=== PATIENT | female | born 1945 | race Caucasian/White ===

== ENCOUNTER 2017-07-20 12:18 | Emergency (ER) | payer MEDICARE ==
[~2017-07-20] VITALS: Ht 157.5 cm; Wt 103.4 kg
[~2017-07-20 12:18] MED LIST: ACET-2031 PO; AMIT-106 PO; ASPI-1471 PO; ASPI81TA94 PO; CHOL10005 PO; CIPR-344 PO; CRAN500T PO; CYAN10006 SUBQ; DOCU100C49 PO; DOCU50CA PO; FERR159T PO; FERR325C2 PO; GLIP-154 PO; HYDR-389 PO; HYDR-4309 PO; IBUP-56 PO; LISI-374 PO; NIFS30 PO; PANT20TA27 PO; PHEN200T32 PO; POTA99TA6 PO; PRAM0.5T27 PO; PRAM1TAB PO; SERT-181 PO; SITA1TAB17 PO
--- NOTE | 2017-07-20 12:30 | ER Report ---
History and Physical Time Seen By MD: 12:27 HPI/ROS CHIEF COMPLAINT: Blood sugar problem HISTORY OF PRESENT ILLNESS: This is a 71-year-old female who presents to the emergency department from the problems area for a blood sugar problem. Patient states that over the last couple of weeks she's had some blood sugar "issues", patient states that she knows her blood sugars have been high however she's not been checking them regularly. Patient states last Wednesday she checked her blood sugar and it was around 450, went to see her primary care provider in [place], was started on Actos and sent home. Patient states then on Wednesday her blood sugars were high again she ended up going to the [facility] where they gave her some insulin, EKG and her blood sugars were down around 200 patient states they sent her home. Patient states then today she checked her blood sugar again and it was around 410, she became concerned and did not want to follow-up in the [facility] therefore she elected to come to the ER for further evaluation. Patient states she's had increased urine output, increased thirst, feels very tired and has been achy and has had intermittent diarrhea over the last couple weeks as well. Patient denies headaches, chest pain, shortness of breath, visual changes. REVIEW OF SYSTEMS: Constitutional: As above. Eyes: No discharge. ENT: No sore throat. Cardiovascular: No chest pain, no palpitations. Respiratory: No cough, no shortness of breath. Gastrointestinal: As above. Genitourinary: As above. Musculoskeletal: No back pain. Skin: No rashes. Neurological: No headache. Allergies: Coded Allergies: oxycodone (Verified Allergy, Intermediate, HALLUCINATIONS, 02/15/15) adhesive (Verified Adverse Reaction, Unknown, BRUISING, 07/02/15) Home Meds Active Scripts Cyanocobalamin (Vitamin B-12) (VITAMIN B-12) 1,000 Mcg/1 Ml Drops, 1000 MCG SUBQ monthly, #2 MCG 6 Refills Prov:OREN SALDIVAR MECHANICAL SERVICE SPECIALIST-BC, ONC 07/19/17 Reported Medications Losartan/Hydrochlorothiazide (LOSARTAN-HCTZ 100-12.5 MG TAB) 1 Each Tablet, 1 EACH PO QDAY 07/20/17 Pioglitazone Hcl (PIOGLITAZONE HCL) 15 Mg Tablet, 15 MG PO QDAY 07/20/17 Cholecalciferol (Vitamin D3) (VITAMIN D3) 1,000 Unit Tablet, 93625 UNIT PO, TAB SHE IS TAKING ONE A WEEK, THEN CHANGE TO 2,000 09/18/16 Hydrocodone Bit/Acetaminophen (NORCO 5-325 TABLET) 1 Each Tablet, 1-2 TAB PO Q4- 6H Y for PAIN, #30 07/09/15 Ibuprofen (IBUPROFEN) 200 Mg Tablet, 500-800 MG PO Q6H Y for PAIN 05/24/15 Aspirin (ASPIR 81) 81 Mg Tablet.dr, 81 MG PO QDAY, TAB 09/21/14 Pramipexole Di-Hcl (MIRAPEX) 0.5 Mg Tablet, 0.5 MG PO BID 08/01/14 Sitagliptin Phos/Metformin Hcl (JANUMET 50-1,000 MG TABLET) 1 Each Tablet, 1 EACH PO BID 08/01/14 Pantoprazole Sodium (PANTOPRAZOLE SODIUM) 20 Mg Tablet.dr, 20 MG PO BID, TAB.SR 08/01/14 Discontinued Reported Medications Potassium Gluconate (POTASSIUM) 99 Mg Tablet, 99 MG PO QWEEK 09/18/16 Cranberry Fruit (Cranberry) 500 Mg Tab.chew, 500 TAB PO BID 05/22/16 Sertraline Hcl (SERTRALINE HCL) 100 Mg Tablet, 1 TAB PO QDAY TAKE ONE TABLET BY MOUTH EVERY DAY 08/01/14 Past Medical/Surgical History She has a past medical and surgical history of migraines, sinus headaches, murmur, one episode of chest pain, hypertension, 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 Reviewed Nurses Notes: Yes Hx Smoking: No Smoking Status: Former Smoker, Light Tobacco Smoker Hx Alcohol Use: No Constitutional Vital Sign - Last 24 Hours 07/20/17 07/20/17 07/20/17 07/20/17 12:18 12:25 12:31 12:33 Temp 98.7 Pulse ??? 67 65 Resp 20 25 B/P (MAP) 163/78 183/73 (109) Pulse Ox 96 97 O2 Delivery Room Air 07/20/17 07/20/17 07/20/1718 12:35 12:48 13:03 13:18 Pulse 62 62 61 Resp 8 11 8 B/P (MAP) 163/78 (106) Pulse Ox 95 96 92 07/20/17 07/20/17 07/20/17 07/20/17 13:30 13:33 13:48 14:00 Pulse 63 60 Resp 28 24 B/P (MAP) 145/71 (95) 166/88 (114) Pulse Ox 94 97 07/20/17 07/20/17 07/20/17 07/20/17 14:03 14:08 14:30 14:38 Pulse 58 63 71 Resp 10 21 14 B/P (MAP) 171/81 (111) Pulse Ox 93 95 95 07/20/17 07/20/17 07/20/17 07/20/17 14:53 15:00 15:23 15:30 Pulse ??? 67 Resp 10 8 B/P (MAP) 153/86 (108) 154/88 (110) Pulse Ox 92 96 07/20/17 15:38 Pulse ??? Intake and Output 07/20/17 07/20/17 07/21/17 15:00 23:00 07:00 Intake Total 1000 ml Balance 1000 ml Physical Exam General Appearance: The patient is alert, has no immediate need for airway protection and no signs of toxicity. Eyes: Pupils equal and round no pallor or injection. ENT, Mouth: Mucous membranes are moist. Respiratory: There are no retractions, lungs are clear to auscultation. Cardiovascular: Regular rate and rhythm, systolic murmur, no clicks or rubs. Gastrointestinal: Abdomen is soft and non tender, no masses, bowel sounds normal. Neurological: Alert and oriented 4. Appears tired. Following all commands. Moving all activities. No focal neuro deficits. Skin: Warm and dry, no rashes. Musculoskeletal: Neck is supple non tender. Extremities are nontender, nonswollen and have full range of motion. DIFFERENTIAL DIAGNOSIS: After history and physical exam differential diagnosis was considered for abdominal pain including but not limited to appendicitis, cholecystitis, gastritis and urinary tract infection, hyperglycemia, diabetic problem, pneumonia, upper respiratory infection, viral syndrome. Medical Decision Making Data Points Result Diagram: 07/20/17 1238 07/20/17 1238 Laboratory Hematology Test 2/6/18 12:30 07/20/17 12:38 07/20/17 15:00 Urine Color Yellow Urine Clarity Clear Urine pH 5.0 pH (4.8-9.5) Urine Specific [place] 1.021 Urine Protein Negative mg/dL (NEGATIVE) Urine Glucose (UA) 500 mg/dL (NEGATIVE) Urine Ketones Negative mg/dL (NEGATIVE) Urine Blood Negative (NEGATIVE) Urine Nitrite Negative (NEGATIVE) Urine Bilirubin Negative (NEGATIVE) Urine Urobilinogen Negative mg/dL (0.2-1.9) Urine Leukocyte Esterase Negative (NEGATIVE) Urine RBC 1 /HPF (0-2/HPF) Urine WBC 1 /HPF (0-5/HPF) Urine Squamous Epithelial Cells Many /LPF (</=FEW) Urine Bacteria Negative /HPF (NONE-FEW) Urine Mucus None /HPF (NONE-FEW) Red Blood Count 4.95 M/uL (4.17-5.56) Mean Corpuscular Volume 87.5 fL (80.0-96.0) Mean Corpuscular Hemoglobin 30.0 pg (26.0-33.0) Mean Corpuscular Hemoglobin Concent 34.3 g/dL (32.0-36.0) Red Cell Distribution Width 13.6 % (11.5-14.5) Mean Platelet Volume 8.0 fL (7.2-11.1) Neutrophils (%) (Auto) 54.3 % (39.4-72.5) Lymphocytes (%) (Auto) 38.0 % (17.6-49.6) Monocytes (%) (Auto) 5.1 % (4.1-12.4) Eosinophils (%) (Auto) 1.1 % (0.4-6.7) Basophils (%) (Auto) 1.5 % (0.3-1.4) Nucleated RBC Relative Count (auto) 0.0 /100WBC Neutrophils # (Auto) 4.9 K/uL (2.0-7.4) Lymphocytes # (Auto) 3.4 K/uL (1.3-3.6) Monocytes # (Auto) 0.5 K/uL (0.3-1.0) Eosinophils # (Auto) 0.1 K/uL (0.0-0.5) Basophils # (Auto) 0.1 K/uL (0.0-0.1) Nucleated RBC Absolute Count (auto) 0.00 K/uL Sodium Level 138 mmol/L (137-145) Potassium Level 3.7 mmol/L (3.5-5.0) Chloride Level 101 mmol/L (98-107) Carbon Dioxide Level 25 mmol/L (22-31) Blood Urea Nitrogen 12 mg/dl (7-18) Creatinine 0.60 mg/dl (0.52-1.04) Glomerular Filtration Rate Calc > 60.0 Random Glucose 283 mg/dl (75-110) Calcium Level 9.3 mg/dl (8.4-10.2) Total Bilirubin 0.8 mg/dl (0.2-1.3) Aspartate Amino Transf (AST/SGOT) 25 U/L (0-35) Alanine Aminotransferase (ALT/SGPT) 35 U/L (0-56) Alkaline Phosphatase 89 U/L (0-126) Total Protein 7.3 gm/dl (6.3-8.2) Albumin 3.9 g/dl (3.5-5.0) Whole Blood Glucose 228 mg/DL (75-110) Chemistry Test 07/20/17 12:30 07/20/17 12:38 07/20/17 15:00 Urine Color Yellow Urine Clarity Clear Urine pH 5.0 pH (4.8-9.5) Urine Specific [place] 1.021 Urine Protein Negative mg/dL (NEGATIVE) Urine Glucose (UA) 500 mg/dL (NEGATIVE) Urine Ketones Negative mg/dL (NEGATIVE) Urine Blood Negative (NEGATIVE) Urine Nitrite Negative (NEGATIVE) Urine Bilirubin Negative (NEGATIVE) Urine Urobilinogen Negative mg/dL (0.2-1.9) Urine Leukocyte Esterase Negative (NEGATIVE) Urine RBC 1 /HPF (0-2/HPF) Urine WBC 1 /HPF (0-5/HPF) Urine Squamous Epithelial Cells Many /LPF (</=FEW) Urine Bacteria Negative /HPF (NONE-FEW) Urine Mucus None /HPF (NONE-FEW) White Blood Count 9.0 k/uL (4.5-11.0) Red Blood Count 4.95 M/uL (4.17-5.56) Hemoglobin 14.9 g/dL (12.0-16.0) Hematocrit 43.4 % (34.0-47.0) Mean Corpuscular Volume 87.5 fL (80.0-96.0) Mean Corpuscular Hemoglobin 30.0 pg (26.0-33.0) Mean Corpuscular Hemoglobin Concent 34.3 g/dL (32.0-36.0) Red Cell Distribution Width 13.6 % (11.5-14.5) Platelet Count 179 K/uL (150-450) Mean Platelet Volume 8.0 fL (7.2-11.1) Neutrophils (%) (Auto) 54.3 % (39.4-72.5) Lymphocytes (%) (Auto) 38.0 % (17.6-49.6) Monocytes (%) (Auto) 5.1 % (4.1-12.4) Eosinophils (%) (Auto) 1.1 % (0.4-6.7) Basophils (%) (Auto) 1.5 % (0.3-1.4) Nucleated RBC Relative Count (auto) 0.0 /100WBC Neutrophils # (Auto) 4.9 K/uL (2.0-7.4) Lymphocytes # (Auto) 3.4 K/uL (1.3-3.6) Monocytes # (Auto) 0.5 K/uL (0.3-1.0) Eosinophils # (Auto) 0.1 K/uL (0.0-0.5) Basophils # (Auto) 0.1 K/uL (0.0-0.1) Nucleated RBC Absolute Count (auto) 0.00 K/uL Glomerular Filtration Rate Calc > 60.0 Calcium Level 9.3 mg/dl (8.4-10.2) Total Bilirubin 0.8 mg/dl (0.2-1.3) Aspartate Amino Transf (AST/SGOT) 25 U/L (0-35) Alanine Aminotransferase (ALT/SGPT) 35 U/L (0-56) Alkaline Phosphatase 89 U/L (0-126) Total Protein 7.3 gm/dl (6.3-8.2) Albumin 3.9 g/dl (3.5-5.0) Whole Blood Glucose 228 mg/DL (75-110) Urinalysis Test 07/20/17 12:30 Urine Color Yellow Urine Clarity Clear Urine pH 5.0 pH (4.8-9.5) Urine Specific [place] 1.021 Urine Protein Negative mg/dL (NEGATIVE) Urine Glucose (UA) 500 mg/dL (NEGATIVE) Urine Ketones Negative mg/dL (NEGATIVE) Urine Blood Negative (NEGATIVE) Urine Nitrite Negative (NEGATIVE) Urine Bilirubin Negative (NEGATIVE) Urine Urobilinogen Negative mg/dL (0.2-1.9) Urine Leukocyte Esterase Negative (NEGATIVE) Urine RBC 1 /HPF (0-2/HPF) Urine WBC 1 /HPF (0-5/HPF) Urine Squamous Epithelial Cells Many /LPF (</=FEW) Urine Bacteria Negative /HPF (NONE-FEW) Urine Mucus None /HPF (NONE-FEW) EKG/Imaging Imaging Location: [facility] Patient: Venessa Moulton : 1945 Visit/Account:[id number] Date of Sevice: 07/20/2017 Exam type: CHEST PA AND LAT History: Cough, history of staph and lungs Comparison: December 17, 2016. Findings: Again noted is mild chronic peribronchial thickening throughout the lungs. There is very mild atelectasis the right lung base. No evidence of pleural effusions or pulmonary edema. The cardiac size is normal in size. The trachea is in midline. IMPRESSION: 1. Small amount of platelike atelectasis the right lung base Mild chronic peribronchial thickening Report Dictated By: Nicol Mcneil MD at 07/20/2017 1:24 PM Report E-Signed By: Nicol Mcneil MD at 07/20/2017 1:26 PM WSN:TRISHA ED Course/Re-evaluation Clinical Indication for ER IV: Hydration, IV Access ED Course The patient was admitted to a room. History and physical were obtained. Differential diagnoses were considered. An IV was started. A one liter LR bolus was given. A CBC, CMP and UA were obtained. Lab studies unremarkable except for bedside Accu-Chek 292, random glucose 283, repeat much sugar 228. A two-view chest x-ray was unremarkable for any acute cardiopulmonary process. I did review these results with the patient and her friend. I did tell her that I did speak with Alvaro Lowery's nurse who was going to call her as noted below for follow-up appointment tomorrow or the next day, to reevaluate the need for long-acting insulin. I did discuss this with the patient and told her that a long-acting insulin would likely help her control her blood sugars. The patient and her friend had no other questions or concerns at this time and were discharged home. Patient states she was feeling better at the time of discharge. 07/20/2017 2:18:01 pm I did call to speak with Alvaro Lowery the patient's provider I didn't of speaking with BRIAN Calderon, Alvaro's nurse who will follow up with the patient today and try to schedule a follow up appointment to discuss insulin again. It does sound like they have discussed injectables but the patient does not want to use injectable medications. Decision to Disposition Date: Jul 20, 2017 Decision to Disposition Time: 15:29 Depart Departure Latest Vital Signs Vital Signs Date Time Temp Pulse Resp B/P (MAP) Pulse Ox O2 Delivery O2 Flow Rate FiO2 07/20/17 15:38 ??? 07/20/17 15:30 154/88 (110) 07/20/17 15:23 8 96 07/20/17 12:25 98.7 Room Air Impression: Primary Impression: Hyperglycemia Condition: Improved Disposition: HOME OR SELF-CARE Referrals: ALVARO LOWERY PA-C (PCP) Patient Instructions: Diabetic Hyperglycemia (ED) Additional Instructions: Drink plenty of water. Get plenty of rest. Continue current medications. Expect a call from your PCP by 4pm today, if no call then call her office to schedule appointment. When you follow up with your PCP be sure to take your glucometer. You will likely need a long acting insulin for your blood sugars. I am pleased you have been able to find a resource for the person you are caring for, this will help reduce your stress. Please return to the ED for worsening symptoms or any other concerns you may need. MATT LÓPEZ MECHANICAL SERVICE SPECIALIST-BC Jul 20, 2017 12:30
[2017-07-20] MEDS ORDERED: LR IV ONE (12:49)
[2017-07-20] MEDS ORDERED: PIOG15TA66 PO (12:51)
[2017-07-20] MEDS ORDERED: LOSA-57 PO (12:52)
[2017-07-20 12:58] LABS: PLATELET COUNT, AUTOMATED 179 K/uL (150-450)
--- NOTE | 2017-07-20 13:30 | RADIOLOGY IMAGING REPORT ---
FACILITY: [facility] PATIENT NAME: Venessa Moulton : 1945 MR: [id number] V: [id number] EXAM DATE: ORDERING PHYSICIAN: MATT LÓPEZ TECHNOLOGIST: Location: [facility] Patient: Venessa Moulton : 1945 Visit/Account:[id number] Date of Sevice: 07/20/2017 Exam type: CHEST PA AND LAT History: Cough, history of staph and lungs Comparison: December 17, 2016. Findings: Again noted is mild chronic peribronchial thickening throughout the lungs. There is very mild atelec tasis the right lung base. No evidence of pleural effusions or pulmonary edema. The cardiac size is normal in size. The trachea is in midline. IMPRESSION: 1. Small amount of platelike atelectasis the right lung base Mild chronic peribronchial thickening Report Dictated By: Nicol Mcneil MD at 07/20/2017 1:24 PM Report E-Signed By: Nicol Mcneil MD at 07/20/2017 1:26 PM WSN:TRISHA
[2017-07-20 15:30] VITALS: BP 154/88
== END 2017-07-20 15:49 | disposition home or self-care (01) ==
LOC: ER 12:27
DX: R63.1 Polydipsia (principal); E11.65 Type 2 diabetes mellitus with hyperglycemia
CPT/HCPCS: 36416; 71046; 81001; 82948; 85025; 96360; 96361; 99284; J7120; 82040; 82247; 82310; 82374; 82435; 82565; 82947; 84075; 84132; 84155; 84295; 84450; 84460; 84520

== ENCOUNTER 2017-09-23 11:26 | Outpatient (RCR) | payer MEDICARE ==
[~2017-09-23 11:26] MED LIST changes: +LOSA-57 PO; +PIOG15TA2 PO
[2017-09-23 11:39] VITALS: BP 108/62
--- NOTE | 2017-09-23 19:14 | ONCOLOGY FOLLOW UP NOTE ---
EVENT DATE: September 23, 2017 DIAGNOSES 1. Iron deficiency anemia. 2. Hypertension. 3. Diabetes. 4. Arthritis. 5. Vitamin B12 deficiency. CHIEF COMPLAINT The patient is here today for followup of her iron deficiency anemia and vitamin B12 deficiency. HEMATOLOGY HISTORY The patient is a 71-year-old female who was diagnosed with iron deficiency anemia and patient was maintained on iron supplement three tablets daily. The patient had a GI workup and there was no active source of bleeding by her GI workup. As per patient, she had a colonoscopy done in [place] in 2013. She had an EGD with polypectomy and biopsy done recently on August 02, 2014. The polyp was fundic gland polyp, and the biopsy from the prepyloric region showed hyperplastic polyp. The patient has been maintained on iron for over a month now. Her iron studies done on July 20, 2014 showed serum ferritin of 7, serum iron 13, iron saturation 3%, and TIBC was 423. Her CBC on July 17, 2014 showed hemoglobin of 8.4, hematocrit 27.4 and MCV 67. Her CBC on August showed hemoglobin 11.6, hematocrit 37.3 and platelets 206,000. MCV was 77. Repeat iron studies and hemoglobin two months after starting her iron supplementation showed impressive response to the iron supplementation. Her hemoglobin improved from 8.4 to 12.1. Her ferritin increased from 7 to 17. The patient received two infusions of Injectafer 750 mg with one week apart, and her ferritin increased from 17 to 720. HISTORY OF PRESENT ILLNESS Patient is here today for followup of her anemia due to iron deficiency iron deficiency and vitamin B12 deficiency. She is complaining of severe fatigue lately. She has neuropathy in her left hand with numbness. She has also headache. She has pain in her knee and the patient has a fissure fracture around her right knee area. She has cough with expectoration. She has chills. She has also a runny nose. PAST MEDICAL HISTORY 1. Iron deficiency anemia. 2. Arthritis. 3. Diabetes. 4. Hypertension. 5. Migraine headache. PAST SURGICAL HISTORY 1. Tonsillectomy in 2. 2. Tubal ligation in 1969. 3. Hernia repair in 2008. 4. Right hip replacement in 2012. 5. Colonoscopy in 2013. SOCIAL HISTORY The patient is . She has three children. 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 Denies any use of alcohol. She quit smoking six years ago. No abuse of illicit drugs. FAMILY HISTORY Brother had leukemia and his son also had leukemia. Father had scleroderma. Mother had lung cancer with metastasis. Sister had bladder cancer. CURRENT MEDICATIONS 1. Janumet mg one tablet twice daily. 2. Glipizide 10 mg twice daily. 3. Pantoprazole 10 mg twice daily. 4. Amitriptyline 25 mg at bedtime. 5. Sertraline 100 mg at bedtime. 6. Ferrous sulfate 325 mg three times daily. 7. Lisinopril 40 mg once daily. 8. Nifedipine ER 30 mg once daily. 9. Stool softener 100 mg two pills in the morning and one at night. 10. Baby aspirin 81 mg daily. ALLERGIES OXYCODONE, which causes hallucinations. REVIEW OF SYSTEMS CONSTITUTIONAL: No appetite or weight change. She has chills. No fever or sweating. No recent infection. HEENT: Ears: No tinnitus or hearing problem. Nose: She has a runny nose. No epistaxis. Throat: No sore throat or mouth ulcers. Eyes: No diplopia or visual changes. CARDIOVASCULAR: No chest pain, orthopnea, or paroxysmal nocturnal dyspnea (PND) . No edema. No palpitations. GENITOURINARY: No hematuria or dysuria. SKIN: No skin rash or lumps. PSYCHIATRIC: No anxiety or depression. RESPIRATORY: Patient has cough with expectoration. GASTROINTESTINAL: She has diarrhea. GENITOURINARY: She has a bladder infection. MUSCULOSKELETAL: She has pain in the knees, especially the right knee after a fissure fracture around the right knee area. NEUROLOGICAL: She has numbness in her left hand and frequent headaches. HEMATOLOGICAL: She bruises easily. She has extreme fatigue lately. PHYSICAL EXAMINATION GENERAL: Looks stable. Well-developed, well-nourished, and in no acute distress. VITAL SIGNS: Blood pressure 108/62, pulse 73 per minute, respirations 16 per minute, temperature 97.6, pulse ox 92% on room air. HEENT: Head: Atraumatic. No sinus tenderness to palpation. Eyes: No icterus or conjunctivitis. Mouth and throat: No oral thrush or mucositis. NECK: Supple. No cervical or supraclavicular lymphadenopathy. LUNGS: Clear to auscultation and percussion bilaterally. HEART: Regular rate and rhythm. No gallops, murmurs, clicks or rubs. ABDOMEN: Soft and lax. No tenderness. No hepatosplenomegaly. No masses. EXTREMITIES: No cyanosis, clubbing or edema. LYMPHATICS: No peripheral lymphadenopathy. NEUROLOGICAL: Conscious, alert and oriented times three. No focal motor or sensory deficits. PSYCHIATRIC: Mood and affect appear normal. SKIN: No skin rash, bruise or purpuric eruption. DIAGNOSTIC DATA Vitamin B12 level is high at 456.5, and ferritin is 219. CBC showed a white count 8.6, hemoglobin 14.9, hematocrit 43.5, platelets 157,000. Serum iron 69.2 , iron saturation 23%. Ferritin 219. ASSESSMENT 1. Iron deficiency anemia with good response to iron supplement. Her initial ferritin was 7 prior to iron supplementation and hemoglobin was 8.4. Her current hemoglobin is 14.9 and her current ferritin is 219. Patient is doing fine currently. Her ferritin is above the normal. I am planning to bring her again in six months with CBC, iron studies with ferritin. 2. Vitamin B12 deficiency, currently on vitamin B12 shots 1000 mcg every month. Her initial vitamin B12 was 152, but currently it is 456.5. I will continue vitamin B12 supplement every month, and I will check her vitamin B12 level with her next visit in six months. 3. Absolute lymphocytosis, recovered completely. Her current absolute lymphocytic count is 3.8. We will continue to monitor. Her flow cytometry came back negative for leukemia lymphoma or lymphoproliferative disorder. 4. Diabetes mellitus, on treatment. 5. Hypertension, on treatment. 6. Arthritis. PLAN: 1. Continue followup. 2. Continue vitamin B12 shots 1000 mcg every month. 3. Patient to return in six months with CBC, vitamin B12 level and iron studies with ferritin. 4. Patient is to contact us for any new concern or complaints. DOMINIQUE
== END 2017-10-01 16:14 | disposition home or self-care (01) ==
LOC: ONC 11:26
PROVIDERS: ATTEND Internal Medicine Hematology
DX: D50.9 Iron deficiency anemia, unspecified (principal); E53.8 Deficiency of other specified B group vitamins; D72.820 Lymphocytosis (symptomatic); E11.9 Type 2 diabetes mellitus without complications; I10 Essential (primary) hypertension; M19.90 Unspecified osteoarthritis, unspecified site; R53.83 Other fatigue; G62.9 Polyneuropathy, unspecified; R51 Headache; R05 Cough; Z87.891 Personal history of nicotine dependence; Z79.899 Other long term (current) drug therapy
CPT/HCPCS: 99212

== ENCOUNTER → 2017-12-09 | Outpatient (CLI) | payer MEDICARE ==
[~2017-12-09] MED LIST changes: -PIOG15TA2 PO; +PIOG15TA67 PO
--- NOTE | 2017-12-09 13:55 | RADIOLOGY IMAGING REPORT ---
FACILITY: [facility] [place] PATIENT NAME: Venessa Moulton : 1945 MR: [id number] V: [id number] EXAM DATE: ORDERING PHYSICIAN: ALVARO LOWERY TECHNOLOGIST: Location: [facility] Patient: Venessa Moulton : 1945 Visit/Account:[id number] Date of Sevice: 12/09/2017 DEXA Scan Clinical history: Postmenopausal. Comparison: None available. LUMBAR SPINE: The bone mineral density (BMD) measured from L1-L4 correlates with a Z-score 3.0 and a T-score of 2.1 which is Normal as defined by the World Health Organization. The corresponding risk of fracture in the lumbar spine is Not increased compared with a young adult reference population. HIP: Bone mineral density (BMD) measured in the Left total hip region correlates with a Z-score 2.5 and a T-score of 1.6 which is Normal as defined by the World Health Organization. The corresponding risk o f fracture in the hip is Not increased compared with a young adult reference population. T score le ft femoral neck 0.9 Bone mineral density (BMD) measured in the Femoral Neck region measures 1.170 g/cm2. Impression: 1. Lumbar spine: Normal. 2. Left Hip: Normal. 3. Femoral Neck: Bone Mineral Density is 1.170 g/cm2 The next DEXA scan of this patient should include the following sites: L1-L4 and the left hip. FRAX? WHO Fracture Risk Assessment Tool link: <http://www.shef.ac.uk/FRAX/tool.jsp?[email or web address]> PLEASE NOTE: 1) The World Health Organization defines low BMD as follows: T-score Normal > -1 Osteopenia < -1 and > -2.5 Osteoporosis < -2.5 without fractures Established osteoporosis < -2.5 with fractures 2) In general, you may wish to consider: Diagnosis Treatment Follow-up DEXA Normal BMD Prevention 2-3 years Osteopenia Prevention/therapy 1-2 years Osteoporosis Therapy Yearly 3) Fracture risk estimated from the T-score is more accurate for vertebral fractures (often spontane ous) than for hip fractures. Report Dictated By: Nicol Mcneil MD at 12/09/2017 1:51 PM Report E-Signed By: Nicol Mcneil MD at 12/09/2017 1:52 PM WSN:TRISHA
--- NOTE | 2017-12-10 09:35 | RADIOLOGY IMAGING REPORT ---
FACILITY: [facility] [place] PATIENT NAME: ELSA HASKINS : [id number] MR: [id number] V: [id number] EXAM DATE: ORDERING PHYSICIAN: ALVARO LOWERY TECHNOLOGIST: Geri Galo PROCEDURE:BILATERAL DIGITAL SCREENING MAMMOGRAM WITH CAD ASSISTED INTERPRETATION & 3D TOMOSYNTHESIS COMPARISON:Prior mammograms 06/25/14, 10/17/13, 02/05/11. INDICATIONS:SCREENING FINDINGS: A small to moderate amount of fibroglandular tissue is seen throughout the breasts. The parenchymal pattern has remained stable allowing for difference in mammographic technique & patient positioning. There is no evidence of malignant appearing mass, malignant appearing calcifications or other secondary sign of malignancy in either breast. DIAGNOSTIC CATEGORY 1--NEGATIVE. RECOMMENDATIONS: ROUTINE MAMMOGRAM AND CLINICAL EVALUATION. IMPRESSION: BIRADS 1: Negative. No significant abnormality is seen. Dictated by: Nicol Mcneil M.D. on 12/09/2017 at 15:18 Transcribed by: MARY on 12/09/2017 at 15:31 Approved by: Nicol Mcneil M.D. on 12/10/2017 at 9:34 [facility]
== END ==
LOC: MAMO 00:53
PROVIDERS: ATTEND Physician Assistant
DX: Z12.31 Encounter for screening mammogram for malignant neoplasm of breast (principal); N95.8 Other specified menopausal and perimenopausal disorders
CPT/HCPCS: 77063; 77067; 77080

== ENCOUNTER 2018-05-19 13:00 | Outpatient (RCR) | payer MEDICARE ==
[~2018-05-19 13:00] MED LIST changes: -HYDR-4309 PO; +HYDR-653 PO
[2018-05-19 13:15] VITALS: BP 125/61
[2018-05-19] MEDS ORDERED: LANI SUBQ (13:18)
[2018-05-19] MEDS ORDERED: INFLUENZA VIRUS VAC 0.5ML SYR IM ONLY ONE (13:45)
--- NOTE | 2018-05-20 00:20 | [facility] ONCOLOGY NOTE ---
EVENT DATE: May 19, 2018 DIAGNOSES 1. Iron deficiency anemia. 2. Hypertension. 3. Diabetes. 4. Arthritis. 5. Vitamin B12 deficiency. CHIEF COMPLAINT The patient is here today for followup of her iron deficiency anemia and vitamin B12 deficiency. HEMATOLOGY HISTORY The patient is a 72-year-old female who was diagnosed with iron deficiency anemia and patient was maintained on iron supplement three tablets daily. The patient had a GI workup and there was no active source of bleeding by her GI workup. As per patient, she had a colonoscopy done in [place] in 2013. She had an EGD with polypectomy and biopsy done recently on August 02, 2014. The polyp was fundic gland polyp, and the biopsy from the prepyloric region showed hyperplastic polyp. The patient has been maintained on iron. Her iron studies done on July 20, 2014 showed serum ferritin of 7, serum iron 13, iron saturation 3%, and TIBC was 423. Her CBC on July 17, 2014 showed hemoglobin of 8.4, hematocrit 27.4 and MCV 67. Her CBC on September 03, 2014 showed hemoglobin 11.6, hematocrit 37.3 and platelets 206,000. MCV was 77. Repeat iron studies and hemoglobin two months after starting her iron supplementation showed impressive response to the iron supplementation. Her hemoglobin improved from 8.4 to 12.1. Her ferritin increased from 7 to 17. The patient received two infusions of Injectafer 750 mg with one week apart, and her ferritin increased from 17 to 720. HISTORY OF PRESENT ILLNESS Patient is here today for followup of her iron deficiency and vitamin B12 deficiency. She is complaining of some joint pain, especially in the shoulders and knees. She had a fall last night. She continues to have diabetic neuropathy, and she is weak, tired, and fatigued. PAST MEDICAL HISTORY 1. Iron deficiency anemia. 2. Arthritis. 3. Diabetes. 4. Hypertension. 5. Migraine headache. PAST SURGICAL HISTORY 1. Tonsillectomy in 1962. 2. Tubal ligation in 1969. 3. Hernia repair in 2008. 4. Right hip replacement in 2012. 5. Colonoscopy in 2013. SOCIAL HISTORY The patient is . She has three children. 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 Denies any use of alcohol. She quit smoking six years ago. No abuse of illicit drugs. FAMILY HISTORY Brother had leukemia and his son also had leukemia. Father had scleroderma. Mother had lung cancer with metastasis. Sister had bladder cancer. CURRENT MEDICATIONS 1. Janumet mg one tablet twice daily. 2. Glipizide 10 mg twice daily. 3. Pantoprazole 10 mg twice daily. 4. Amitriptyline 25 mg at bedtime. 5. Sertraline 100 mg at bedtime. 6. Ferrous sulfate 325 mg three times daily. 7. Lisinopril 40 mg once daily. 8. Nifedipine ER 30 mg once daily. 9. Stool softener 100 mg two pills in the morning and one at night. 10. Baby aspirin 81 mg daily. ALLERGIES OXYCODONE, which causes hallucinations. REVIEW OF SYSTEMS CONSTITUTIONAL: No appetite or weight change. No fever, chills or sweating. No recent infection. HEENT: Ears: No tinnitus or hearing problem. Nose: No nasal discharge or epistaxis. Throat: No sore throat or mouth ulcers. Eyes: No diplopia or visual changes. RESPIRATORY: No shortness of breath. No cough, expectoration or hemoptysis. CARDIOVASCULAR: No chest pain, orthopnea, or paroxysmal nocturnal dyspnea (PND). No edema. No palpitations. GASTROINTESTINAL: No nausea or vomiting. No diarrhea or constipation. No change in bowel movements. No heartburn or swallowing difficulties. No abdominal pain. No jaundice. No hematemesis, melena or rectal bleeding. GENITOURINARY: No hematuria or dysuria. MUSCULOSKELETAL: She has pain in the shoulders and knees. NEUROLOGICAL: She has neuropathy from diabetes. HEMATOLOGIC/LYMPHATIC: She is weak, tired, and fatigued. SKIN: No skin rash or lumps. PSYCHIATRIC: No anxiety or depression. PHYSICAL EXAMINATION GENERAL: Looks stable. Well-developed, well-nourished, and in no acute distress. VITAL SIGNS: Blood pressure 125/61, pulse 61 per minute, respirations 16 per minute, temperature 98.2, pulse oximetry 92% on room air. HEENT: Head: Atraumatic. No sinus tenderness to palpation. Eyes: No icterus or conjunctivitis. Mouth and throat: No oral thrush or mucositis. NECK: Supple. No cervical or supraclavicular lymphadenopathy. LUNGS: Clear to auscultation and percussion bilaterally. HEART: Regular rate and rhythm. No gallops, murmurs, clicks or rubs. ABDOMEN: Soft and lax. No tenderness. No hepatosplenomegaly. No masses. EXTREMITIES: No cyanosis, clubbing or edema. LYMPHATICS: No peripheral lymphadenopathy. NEUROLOGICAL: Conscious, alert and oriented times three. No focal motor or sensory deficits. PSYCHIATRIC: Mood and affect appear normal. SKIN: No skin rash, bruise or purpuric eruption. DIAGNOSTIC DATA CBC showed a white count of 9.2, hemoglobin 15.4, hematocrit 44.1%, and platelet count 161,000. Iron saturation 22.4%. Serum iron 59.4. TIBC of 265 and ferritin 158. Vitamin B12 level is 378.1. ASSESSMENT 1. Iron deficiency anemia with good response to iron supplementation. Her initial ferritin was 7 prior to iron supplementation and hemoglobin was 8.4. Her current hemoglobin is 14.4% and her current ferritin is 158, which is down from 219. Patient can follow with her primary care provider, Melita Quiroz, at least every six months with CBC and iron studies with vitamin B12 level. If the patient will develop iron deficiency or any other hematological abnormality, I would be more than happy to see her again at that time. 2. Vitamin B12 deficiency, currently on vitamin B12 shots 1000 mcg every month. Current vitamin B12 level is 378.1. Initially it was 152. 3. Diabetes mellitus, on treatment. 4. Hypertension, on treatment. 5. Arthritis. PLAN: 1. Patient to return on p.r.n. basis. 2. Patient follow with Meliat Quiroz. 3. Recommend iron studies with ferritin, CBC and vitamin B12 level every six months. 4. Patient to contact us for any new concern or complaints. DOMINIQUE
== END 2018-07-18 12:02 | disposition home or self-care (01) ==
LOC: ONC 13:00
PROVIDERS: ATTEND Internal Medicine Hematology
DX: D50.9 Iron deficiency anemia, unspecified (principal); E53.8 Deficiency of other specified B group vitamins; D72.820 Lymphocytosis (symptomatic); E11.9 Type 2 diabetes mellitus without complications; I10 Essential (primary) hypertension; M19.90 Unspecified osteoarthritis, unspecified site; R53.83 Other fatigue; G62.9 Polyneuropathy, unspecified; R51 Headache; R05 Cough; Z87.891 Personal history of nicotine dependence; Z79.899 Other long term (current) drug therapy; Z23 Encounter for immunization
CPT/HCPCS: G0008; G0463; Q2037; 90674; 99212

== ENCOUNTER 2018-09-01 11:46 | Emergency (ER) | payer MEDICARE ==
[~2018-09-01 11:46] MED LIST changes: +LANI SUBQ
--- NOTE | 2018-09-01 11:52 | ER Report ---
History and Physical Time Seen By MD: 11:52 HPI/ROS CHIEF COMPLAINT: Head injury 2 days ago, HISTORY OF PRESENT ILLNESS: Patient is a 73-year-old female who hails from [facility] who presents to the emergency department today after a fall that occurred 2 days ago. Patient states that she slipped on the ice and fell and is complaining of pain to her head and neck along with I lateral knee pain, pelvic pain left hand and left foot pain. She states that she was seen here emergency department had x-rays of both her knees done was not given information on the results of the knee x-rays. No other imaging studies were done. Patient states that she had been taking hydrocodone at night for pain. She states that she has been seeing "ants". In because they were unsatisfied with the care they received in the [place] emergency department they present to [facility] for further evaluation. Patient does ambulate with a walker REVIEW OF SYSTEMS: Respiratory: No cough, no dyspnea. Cardiovascular: No chest pain, no palpitations. Gastrointestinal: No vomiting, no abdominal pain. Musculoskeletal: Headache, neck pain, left hand, left foot pain, pelvic pain Allergies: Coded Allergies: oxycodone (Verified Allergy, Intermediate, HALLUCINATIONS, 09/01/18) adhesive (Verified Adverse Reaction, Unknown, BRUISING, 09/01/18) Home Meds Active Scripts Tramadol Hcl (TRAMADOL HCL) 50 Mg Tablet, 50 MG PO Q6H PRN for PAIN, #12 TAB 0 Refills Prov:EVAN BARAHONA MD 09/01/18 Cyanocobalamin (Vitamin B-12) (VITAMIN B-12) 1,000 Mcg/1 Ml Drops, 1000 MCG SUBQ monthly, #2 MCG 6 Refills Prov:OREN SALDIVAR ZIG ZAG STITCHER-BC, ONC 07/19/17 Reported Medications Fluticasone Prop 50 Mcg Ns (FLONASE 50 MCG NS) 16 Gm Gerlach.susp, 50 MCG IN QDAY 09/01/18 Pramipexole Di-Hcl (PRAMIPEXOLE DIHYDROCHLORIDE) 1 Mg Tablet, 1 MG PO HS 09/01/18 Dulaglutide (Trulicity) 1.5 Mg/0.5 Ml Pen.injctr, 1.5 MG SQ Q7DAY 09/01/18 Amitriptyline Hcl (AMITRIPTYLINE HCL) 50 Mg Tablet, 50 MG PO QHS, #5 TAB 09/01/18 Sertraline Hcl (SERTRALINE HCL) 100 Mg Tablet, 2 TAB PO HS, TAB 09/01/18 Insulin Glargine (LANTUS) 100 Unit/Ml Soln, 40 UNIT SUBQ HS, ML 05/19/18 Cholecalciferol (Vitamin D3) (VITAMIN D3) 1,000 Unit Tablet, 10085 UNIT PO, TAB SHE IS TAKING ONE A WEEK, THEN CHANGE TO 2,000 09/18/16 Hydrocodone Bit/Acetaminophen (NORCO 5-325 TABLET) 1 Each Tablet, 1-2 TAB PO Q4- 6H PRN for PAIN, #30 07/09/15 Pantoprazole Sodium (PANTOPRAZOLE SODIUM) 20 Mg Tablet.dr, 40 MG PO QDAY, TAB.SR 08/01/14 Discontinued Reported Medications Losartan/Hydrochlorothiazide (LOSARTAN-HCTZ 100-12.5 MG TAB) 1 Each Tablet, 1 EACH PO QDAY 07/20/17 Pioglitazone Hcl (PIOGLITAZONE HCL) 15 Mg Tablet, 15 MG PO QDAY 07/20/17 Ibuprofen (IBUPROFEN) 200 Mg Tablet, 500-800 MG PO Q6H PRN for PAIN 05/24/15 Aspirin (ASPIR 81) 81 Mg Tablet.dr, 81 MG PO QDAY, TAB 09/21/14 Pramipexole Di-Hcl (MIRAPEX) 0.5 Mg Tablet, 0.5 MG PO BID 08/01/14 Sitagliptin Phos/Metformin Hcl (JANUMET 50-1,000 MG TABLET) 1 Each Tablet, 1 EACH PO BID 08/01/14 Hx Smoking: No Smoking Status: Former Smoker, Light Tobacco Smoker Hx Substance Use Disorder: No Hx Alcohol Use: No Constitutional Vital Sign - Last 24 Hours 09/01/18 09/01/18 09/01/18 09/01/18 11:46 11:54 11:56 12:09 Temp 98.0 Pulse 78 64 Resp 12 B/P (MAP) 163/79 (107) 163/79 154/81 (105) Pulse Ox 92 90 O2 Delivery Room Air 09/01/18 09/01/18 09/01/18 09/01/18 12:16 12:46 12:51 13:00 Pulse 74 66 73 B/P (MAP) 142/65 (90) Pulse Ox 89 90 09/01/18 09/01/18 13:21 13:30 Pulse 61 B/P (MAP) 144/64 (90) Pulse Ox 90 Physical Exam General Appearance: The patient is alert, has no immediate need for airway protection and no current signs of toxicity. Eyes: Pupils equal and round no injection. Extraocular muscles are intact and symmetrical Respiratory: Chest is non tender, lungs are clear to auscultation. Cardiac: regular rate and rhythm Gastrointestinal: Abdomen is soft and non tender, no masses, bowel sounds normal. Musculoskeletal: Neck: Neck is supple and non tender. Extremities have full range of motion and is pain to the left hand and left foot. Over the 5th and 4th metatarsals there is some bruising. Patient also complains of pain to the pelvic area. Skin: No rashes or lesions. [ ] DIFFERENTIAL DIAGNOSIS: After history and physical exam differential diagnosis was considered for Medical Decision Making EKG/Imaging Imaging FACILITY: [facility] PATIENT NAME: Venessa Moulton : 1945 MR: [id number] V: [id number] EXAM DATE: ORDERING PHYSICIAN: EVAN BARAHONA TECHNOLOGIST: Location: [facility] - [place], [place] Patient: Venessa Moulton : 1945 Visit/Account:[id number] Date of Sevice: 09/01/2018 EXAMINATION: CT head without IV contrast HISTORY: Fall. TECHNIQUE: Axial CT images of the head were obtained from the vertex to the skull base without IV contrast, with coronal and sagittal 2D reconstructed images. One of the following dose optimization techniques was utilized in the performance of this exam: Automated exposure control; adjustment of the mA and/or kV according to the patient's size; or use of an iterative reconstruction technique. Specific details can be referenced in the facility's radiology CT exam operational policy. COMPARISON: None. FINDINGS: There is mild age-appropriate parenchymal volume loss with mild patchy low attenuation in the deep white matter compatible with chronic small vessel ischemic change. Intracranial vascular calcifications. Small old lacunar infarct in the left cerebellum. No CT evidence of intracranial hemorrhage, mass lesion, or acute infarct. No midline shift or extra-axial fluid collections. Medina-white differentiation is maintained. The calvarium is intact. The partially visualized paranasal sinuses and mastoid air cells are unopacified. IMPRESSION: 1. No CT evidence of acute intracranial pathology. 2. Mild chronic age-related changes. 3. Small old lacunar infarct in the left cerebellum. Report Dictated By: Joaquin Rajput MD at 09/01/2018 12:56 PM Report E-Signed By: Joaquin Rajput MD at 09/01/2018 12:59 PM WSN:[id number] FACILITY: [facility] PATIENT NAME: Venessa Moulton : 1945 MR: [id number] V: [id number] EXAM DATE: ORDERING PHYSICIAN: EVAN BARAHONA TECHNOLOGIST: Location: [facility] - [place], [place] Patient: Venessa Moulton : 1945 Visit/Account:[id number] Date of Sevice: 09/01/2018 EXAMINATION: CT cervical spine without IV contrast HISTORY: Fall. TECHNIQUE: Thin axial CT images of the cervical spine were obtained without IV contrast, with sagittal and coronal 2D reconstructed images. One of the following dose optimization techniques was utilized in the performance of this exam: Automated exposure control; adjustment of the mA and/or kV according to the patient's size; or use of an iterative reconstruction technique. Specific details can be referenced in the facility's radiology CT exam operational policy. COMPARISON: None. FINDINGS: The cervical spine is negative for acute fracture or subluxation. Normal alignment. Vertebral body height is maintained. Chronic degenerative changes along the cervical spine. There is mild disc space narrowing at C5-C6 and C6-C7 with anterior endplate osteophyte formation. Mild multilevel facet arthropathy bilaterally. The dens is intact. Normal alignment at the craniocervical junction. IMPRESSION: 1. No acute osseous findings along the cervical spine. Normal alignment. 2. Chronic degenerative changes greatest at the C5-C6 and C6-C7 interspaces. Report Dictated By: Joaquin Rajput MD at 09/01/2018 12:59 PM Report E-Signed By: Joaquin Rajput MD at 09/01/2018 1:01 PM WSN:[id number] FACILITY: [facility] PATIENT NAME: Venessa Moulton : 1945 MR: [id number] V: [id number] EXAM DATE: [id number] ORDERING PHYSICIAN: EVAN BARAHONA TECHNOLOGIST: Location: [facility] - [place], [place] Patient: Venessa Moulton : 1945 Visit/Account:[id number] Date of Sevice: 09/01/2018 EXAMINATION: AP pelvis. HISTORY: Fall. COMPARISON: None. FINDINGS: Surgical changes of right total hip arthroplasty. The femoral and acetabular components demonstrate normal alignment. No acute osseous findings in the bony pelvis. Mild chronic degenerative changes at the left hip and at the pubic symphysis. Osteopenia. IMPRESSION: 1. No acute osseous findings in the bony pelvis. 2. Prior right REMY with normal alignment. Report Dictated By: Joaquin Rajput MD at 09/01/2018 12:49 PM Report E-Signed By: Joaquin Rajput MD at 09/01/2018 12:50 PM WSN:[id number] FACILITY: [facility] PATIENT NAME: Venessa Moulton : 1945 MR: [id number] V: [id number] EXAM DATE: ORDERING PHYSICIAN: EVAN BARAHONA TECHNOLOGIST: Location: [facility] - [place], [place] Patient: Venessa Moulton : 1945 Visit/Account:[id number] Date of Sevice: 09/01/2018 EXAMINATION: Right knee 3 views HISTORY: Fall. COMPARISON: None. FINDINGS: Bones of the right knee demonstrate normal alignment. No evidence of acute fracture or dislocation. There is mild joint space narrowing in the lateral compartment with marginal osteophyte formation. The medial joint space is relatively well preserved. Mild degenerative changes at the patellofemoral joint. There is mild superior patellar spurring. Small right knee joint effusion extending along the suprapatellar bursa. IMPRESSION: 1. No acute osseous findings at the right knee. 2. Mild chronic degenerative changes. 3. Right knee joint effusion. Report Dictated By: Joaquin Rajput MD at 09/01/2018 12:51 PM Report E-Signed By: Joaquin Rajput MD at 09/01/2018 12:52 PM WSN:[id number] FACILITY: [facility] PATIENT NAME: Venessa Moulton : 1945 MR: [id number] V: [id number] EXAM DATE: [id number] ORDERING PHYSICIAN: EVAN BARAHONA TECHNOLOGIST: Location: [facility] - [place], [place] Patient: Venessa Moulton : 1945 Visit/Account:[id number] Date of Sevice: 09/01/2018 EXAMINATION: Left knee 3 views HISTORY: Fall. COMPARISON: None. FINDINGS: Bones of the left knee demonstrate normal alignment. No evidence of acute fracture or dislocation. There is moderate joint space narrowing in the medial compartment with marginal osteophyte formation. The lateral joint space is relatively well-preserved. Mild degenerative changes at the patellofemoral joint. Mild superior patellar spurring. There is a small knee joint effusion extending along the suprapatellar bursa. IMPRESSION: 1. No acute osseous findings at the left knee. 2. Chronic degenerative changes, greatest along the medial compartment. 3. Small left knee joint effusion. Report Dictated By: Joaquin Rajput MD at 09/01/2018 12:52 PM Report E-Signed By: Joaquin Rajput MD at 09/01/2018 12:55 PM WSN:[id number] ED Course/Re-evaluation ED Course Plan at this time will be to image the head, C-spine, left hand, left foot, pelvis Decision to Disposition Date: Sep 01, 2018 Decision to Disposition Time: 14:00 Depart Departure Latest Vital Signs Vital Signs Date Time Temp Pulse Resp B/P (MAP) Pulse Ox O2 Delivery O2 Flow Rate FiO2 09/01/18 13:30 144/64 (90) 09/01/18 13:21 61 90 09/01/18 11:56 98.0 12 Room Air Impression: Primary Impression: Brain concussion Additional Impression: Contusion Condition: Improved Disposition: HOME OR SELF-CARE Referrals: ALVARO LOWERY PA-C (PCP) New Scripts Tramadol Hcl (TRAMADOL HCL) 50 Mg Tablet 50 MG PO Q6H PRN for PAIN, #12 TAB 0 Refills Prov: EVAN BARAHONA MD 09/01/18 Patient Instructions: Concussion (ED), Contusion in Adults (GEN) Additional Instructions: Follow up for your concussion if symptoms do not improve in [address]Daniel Bradshaw at [facility] located at [facility] [place], [place]. Can call for an appointment by calling [phone] Problem Qualifiers Primary Impression: Brain concussion Encounter type: initial encounter Loss of consciousness presence/duration: without LOC Qualified Codes: S06.0X0A - Concussion without loss of consciousness, initial encounter Additional Impression: Contusion Encounter type: initial encounter Contusion area: knee Laterality: unspecified laterality Qualified Codes: S80.00XA - Contusion of unspecified knee, initial encounter EVAN BARAHONA MD Sep 01, 2018 11:52
[2018-09-01] MEDS ORDERED: APAP/HYDROCODONE 325/5 TAB PO ONE (11:55)
[2018-09-01] MEDS ORDERED: AMIT-108 PO (12:08)
[2018-09-01] MEDS ORDERED: PRAM1TAB PO (12:08)
[2018-09-01] MEDS ORDERED: SERT-181 PO (12:08)
[2018-09-01] MEDS ORDERED: FLUT16SP19 IN (12:08)
[2018-09-01] MEDS ORDERED: DULA1.5P SQ (12:08)
--- NOTE | 2018-09-01 12:55 | RADIOLOGY IMAGING REPORT ---
[facility] PATIENT NAME: Venessa Moulton : 1945 MR: [id number] V: [id number] EXAM DATE: ORDERING PHYSICIAN: EVAN BARAHONA TECHNOLOGIST: Location: [facility] [place] Patient: Venessa Moulton : 1945 Visit/Account:[id number] Date of Sevice: 09/01/2018 EXAMINATION: AP pelvis. HISTORY: Fall. COMPARISON: None. FINDINGS: Surgical changes of right total hip arthroplasty. The femoral and acetabular components demonstrate n ormal alignment. No acute osseous findings in the bony pelvis. Mild chronic degenerative changes at the left hip and a t the pubic symphysis. Osteopenia. IMPRESSION: 1. No acute osseous findings in the bony pelvis. 2. Prior right REMY with normal alignment. Report Dictated By: Joaquin Rajput MD at 09/01/2018 12:49 PM Report E-Signed By: Joaquin Rajput MD at 09/01/2018 12:50 PM WSN:[id number]
--- NOTE | 2018-09-01 12:57 | RADIOLOGY IMAGING REPORT ---
FACILITY: PATIENT NAME: Venessa Moulton : 1945 MR: [id number] V: [id number] EXAM DATE: ORDERING PHYSICIAN: EVAN BARAHONA TECHNOLOGIST: Location: [facility] [place] Patient: Venessa Moulton : 1945 Visit/Account:[id number] Date of Sevice: 09/01/2018 EXAMINATION: Right knee 3 views HISTORY: Fall. COMPARISON: None. FINDINGS: Bones of the right knee demonstrate normal alignment. No evidence of acute fracture or dislocation. There is mild joint space narrowing in the lateral compartment with marginal osteophyte formation. Th e medial joint space is relatively well preserved. Mild degenerative changes at the patellofemoral rahul int. There is mild superior patellar spurring. Small right knee joint effusion extending along the suprapatellar bursa. IMPRESSION: 1. No acute osseous findings at the right knee. 2. Mild chronic degenerative changes. 3. Right knee joint effusion. Report Dictated By: Joaquin Rajput MD at 09/01/2018 12:51 PM Report E-Signed By: Joaquin Rajput MD at 09/01/2018 12:52 PM WSN:[id number]
--- NOTE | 2018-09-01 13:02 | RADIOLOGY IMAGING REPORT ---
FACILITY: [facility] PATIENT NAME: Venessa Moulton : 1945 MR: [id number] V: [id number] EXAM DATE: ORDERING PHYSICIAN: EVAN BARAHONA TECHNOLOGIST: Location: [facility] [place] Patient: Venessa Moulton : 1945 Visit/Account:[id number] Date of Sevice: 09/01/2018 EXAMINATION: Left knee 3 views HISTORY: Fall. COMPARISON: None. FINDINGS: Bones of the left knee demonstrate normal alignment. No evidence of acute fracture or dislocation. There is moderate joint space narrowing in the medial compartment with marginal osteophyte formation. The lateral joint space is relatively well-preserved. Mild degenerative changes at the patellofemora l joint. Mild superior patellar spurring. There is a small knee joint effusion extending along the suprapatellar bursa. IMPRESSION: 1. No acute osseous findings at the left knee. 2. Chronic degenerative changes, greatest along the medial compartment. 3. Small left knee joint effusion. Report Dictated By: Joaquin Rajput MD at 09/01/2018 12:52 PM Report E-Signed By: Joaquin Rajput MD at 09/01/2018 12:55 PM WSN:[id number]
--- NOTE | 2018-09-01 13:03 | RADIOLOGY IMAGING REPORT ---
FACILITY: PATIENT NAME: Venessa Moulton : 1945 MR: [id number] V: [id number] EXAM DATE: ORDERING PHYSICIAN: EVAN BARAHONA TECHNOLOGIST: Location: [facility] [place] Patient: Venessa Moulton : 1945 Visit/Account:[id number] Date of Sevice: 09/01/2018 EXAMINATION: Left foot 3 views HISTORY: Fall. COMPARISON: None. FINDINGS: Bones of the left foot demonstrate normal alignment. No evidence of acute fracture or dislocation. There are mild degenerative changes at multiple IP joints of the left foot and along the midfoot. Rachel ntar and Achilles calcaneal spurs. Vascular calcifications. IMPRESSION: 1. No acute osseous findings in the left foot. 2. Mild chronic degenerative changes in the foot. Report Dictated By: Joaquin Rajput MD at 09/01/2018 12:55 PM Report E-Signed By: Joaquin Rajput MD at 09/01/2018 12:56 PM WSN:[id number]
--- NOTE | 2018-09-01 13:04 | RADIOLOGY IMAGING REPORT ---
FACILITY: [facility] PATIENT NAME: Venessa Moulton : 1945 MR: [id number] V: [id number] EXAM DATE: ORDERING PHYSICIAN: EVAN BARAHONA TECHNOLOGIST: Location: [facility] Patient: Venessa Moulton : 1945 Visit/Account:[id number] Date of Sevice: 09/01/2018 EXAMINATION: CT head without IV contrast HISTORY: Fall. TECHNIQUE: Axial CT images of the head were obtained from the vertex to the skull base without IV c ontrast, with coronal and sagittal 2D reconstructed images. One of the following dose optimization techniques was utilized in the performance of this exam: Autom ated exposure control; adjustment of the mA and/or kV according to the patient's size; or use of an i terative reconstruction technique. Specific details can be referenced in the facility's radiology C T exam operational policy. COMPARISON: None. FINDINGS: There is mild age-appropriate parenchymal volume loss with mild patchy low attenuation in the deep wh ite matter compatible with chronic small vessel ischemic change. Intracranial vascular calcifications . Small old lacunar infarct in the left cerebellum. No CT evidence of intracranial hemorrhage, mass lesion, or acute infarct. No midline shift or extra-a xial fluid collections. Medina-white differentiation is maintained. The calvarium is intact. The partially visualized paranasal sinuses and mastoid air cells are unopaci fied. IMPRESSION: 1. No CT evidence of acute intracranial pathology. 2. Mild chronic age-related changes. 3. Small old lacunar infarct in the left cerebellum. Report Dictated By: Joaquin Rajput MD at 09/01/2018 12:56 PM Report E-Signed By: Joaquin Rajput MD at 09/01/2018 12:59 PM WSN:[id number]
--- NOTE | 2018-09-01 13:05 | RADIOLOGY IMAGING REPORT ---
FACILITY: [facility] [place] PATIENT NAME: Venessa Moulton : 1945 MR: [id number] V: [id number] EXAM DATE: ORDERING PHYSICIAN: EVAN BARAHONA TECHNOLOGIST: Location: [facility] [place] Patient: Venessa Moulton : 1945 Visit/Account:[id number] Date of Sevice: 09/01/2018 EXAMINATION: CT cervical spine without IV contrast HISTORY: Fall. TECHNIQUE: Thin axial CT images of the cervical spine were obtained without IV contrast, with sagit mimi and coronal 2D reconstructed images. One of the following dose optimization techniques was utilized in the performance of this exam: Autom ated exposure control; adjustment of the mA and/or kV according to the patient's size; or use of an i terative reconstruction technique. Specific details can be referenced in the facility's radiology C T exam operational policy. COMPARISON: None. FINDINGS: The cervical spine is negative for acute fracture or subluxation. Normal alignment. Vertebral body he ight is maintained. Chronic degenerative changes along the cervical spine. There is mild disc space narrowing at C5-C6 an d C6-C7 with anterior endplate osteophyte formation. Mild multilevel facet arthropathy bilaterally. The dens is intact. Normal alignment at the craniocervical junction. IMPRESSION: 1. No acute osseous findings along the cervical spine. Normal alignment. 2. Chronic degenerative changes greatest at the C5-C6 and C6-C7 interspaces. Report Dictated By: Joaquin Rajput MD at 09/01/2018 12:59 PM Report E-Signed By: Joaquin Rajput MD at 09/01/2018 1:01 PM WSN:[id number]
[2018-09-01] MEDS ORDERED: TRAM-420 PO ×2 (13:24→13:30)
[2018-09-01 13:30] VITALS: BP 144/64
--- NOTE | 2018-09-01 13:57 | RADIOLOGY IMAGING REPORT ---
FACILITY: [facility] PATIENT NAME: Venessa Moulton : 1945 MR: [id number] V: [id number] EXAM DATE: ORDERING PHYSICIAN: EVAN BARAHONA TECHNOLOGIST: Location: [facility] Patient: Venessa Moulton : 1945 Visit/Account:[id number] Date of Sevice: 09/01/2018 HAND COMPLETE LEFT HISTORY: fall COMPARISON: None FINDINGS: AP lateral and oblique views of the left hand demonstrates no evidence of acute bony abnorm ality. There is no evidence of lytic or blastic bony lesions. There is no significant arthropathy augusta ntified. The visualized soft tissues are unremarkable. IMPRESSION: No evidence of acute osseous injury. Report Dictated By: Zane Mancilla at 09/01/2018 1:52 PM Report E-Signed By: Zane Mancilla at 09/01/2018 1:53 PM WSN:[id number]
== END 2018-09-01 13:48 | disposition home or self-care (01) ==
LOC: ER 12:20
DX: S06.0X0A Concussion without loss of consciousness, initial encounter (principal); S80.00XA Contusion of unspecified knee, initial encounter; W00.0XXA Fall on same level due to ice and snow, initial encounter
CPT/HCPCS: 70450; 72125; 72170; 73130; 73562; 73630; 99284; A9270

== ENCOUNTER → 2018-12-16 | Outpatient (CLI) | payer MEDICARE ==
[~2018-12-16] MED LIST changes: +AMIT-108 PO; +DULA1.5P SQ; +FLUT16SP19 IN; +TRAM-420 PO
--- NOTE | 2018-12-16 14:04 | RADIOLOGY IMAGING REPORT ---
FACILITY: [facility] PATIENT NAME: Venessa Moulton : 1945 MR: [id number] V: [id number] EXAM DATE: ORDERING PHYSICIAN: EN FRY TECHNOLOGIST: Location: [facility] Patient: Venessa Moulton : 1945 Visit/Account:[id number] Date of Sevice: 12/16/2018 EXAMINATION: MRI lumbar spine without IV contrast HISTORY: Low back pain and left leg pain COMPARISON: None. TECHNIQUE: Multi-planar, multi-sequence lumbar spine MRI was performed without intravenous contrast administration. FINDINGS: Alignment: Normal. Vertebral marrow signal: Negative. Distal thoracic cord: Negative. Conus: negative, terminates at T12-L1 Cauda equina: Negative. Paravertebral soft tissues: Negative. Visualized abdominal and pelvic structures: Negative. Disc Spaces: Lower thoracic spine: Normal. L1-2: Normal. L2-3: Disc degeneration with broad disc bulge indenting the ventral thecal sac without significant st enosis. L3-4: Disc degeneration and broad disc bulge with disc osteophyte eccentric to the left posteriorly d isplacing the extraforaminal left L3 nerve root. Disc flattens the ventral thecal sac. L4-5: Disc degeneration with broad disc bulge and bilateral facet arthrosis. Disc bulge indents the v entral thecal sac and narrows the bilateral lateral recesses. There is mild left and moderate right f oraminal stenosis. The extraforaminal right L4 nerve root may be displaced posteriorly as well. L5-S1: Mild facet arthrosis, no significant stenosis. IMPRESSION: Discogenic degenerative changes greatest at L3-4 and L4-5 as described above. Report Dictated By: EN MCKOY at 12/16/2018 1:47 PM Report E-Signed By: EN MCKOY at 12/16/2018 1:55 PM WSN:[id number]
== END ==
LOC: RAD 10:39
PROVIDERS: ATTEND Orthopaedic Surgery
DX: M54.5 Low back pain (principal); M79.605 Pain in left leg
CPT/HCPCS: 72148